=== PATIENT | male | born 1965 | race Two or more races ===

== ENCOUNTER 2024-09-02 12:59 | Emergency (ER) | payer OTHER ==
[~2024-09-02] VITALS: Ht 170.2 cm; Wt 70.5 kg
[2024-09-02 13:30] VITALS: TEMP 99.1
[2024-09-02] MEDS ORDERED: IBUP-1506 PO (13:36)
[2024-09-02] MEDS ORDERED: LOSA-381 PO (13:37)
[2024-09-02 14:15] VITALS: BP 155/90; PULSE 90; RESP 17; O2SAT 99
[2024-09-02] MEDS: HYDROCODONE/ACETAMINOPHEN 5-325 MG TABLET PO ONE (14:59)
[2024-09-02] MEDS ORDERED: HYDR-4062 PO (14:59)
[2024-09-02] MEDS: IBUPROFEN 200 MG TABLET PO ONE (14:59)
[2024-09-02] MEDS ORDERED: IBUP-1554 PO (14:59)
== END 2024-09-02 15:59 | disposition home or self-care (01) ==
LOC: EMS 13:01
DX: S90.31XA Contusion of right foot, initial encounter (principal); I10 Essential (primary) hypertension; M19.90 Unspecified osteoarthritis, unspecified site; Z87.891 Personal history of nicotine dependence; Z91.018 Allergy to other foods; Z88.0 Allergy status to penicillin; Z79.899 Other long term (current) drug therapy; W23.0XXA Caught, crushed, jammed, or pinched between moving objects, initial encounter; Y93.89 Activity, other specified; Y92.89 Other specified places as the place of occurrence of the external cause; Y99.8 Other external cause status
CPT/HCPCS: 99283